=== PATIENT | male | born 1980 | race Caucasian/White ===

== ENCOUNTER 2022-05-07 19:50 | Day surgery (SDC) | payer SELFPAY ==
[~2022-05-07] VITALS: Ht 195.6 cm; Wt 100.0 kg
[~2022-05-07 19:50] MED LIST: AGM875T PO; BACL10TA PO; CLIN300C3 PO; CYCL10TA9 PO; DOCU-161 PO; GABA100C PO; GBPN600T PO; METH4TAB PO; METH500T7 PO; OXYC15TA74 PO; OXYC1TAB12 PO; OXYC1TAB87 PO; OXYC20TA14 PO; PENI500T PO; TRM50T PO
[2022-05-07] MEDS ORDERED: fentaNYL INJ 100 MCG/2 ML AMP IVP STA ×2 (19:54→20:37)
[2022-05-07] MEDS ORDERED: ceFAZolin INJECTION 1,000 MG in NS (IVPB) 50 ML IV STA ×2 (19:54→21:10)
[2022-05-07] MEDS ORDERED: TETANUS,DIPTH,PERTUSS P/F (BOOSTRIX) 0.5 ML VIAL IM ONE (20:00)
[2022-05-07] MEDS ORDERED: LACTATED RINGERS 1,000 ML IV ONE (20:00)
--- NOTE | 2022-05-07 20:06 | ED Lower Extremity ---
General Stated Complaint: L TIB/FIB INJ Source: patient, EMS History of Present Illness Date Seen by Provider: May 07, 2022 Time Seen by Provider: 19:51 Initial Comments PT ARRIVES VIA EMS FROM HOME C/O LEFT LOWER LEG INJURY OCCURRED JUST PRIOR TO ARRIVAL WAS WORKING ON A CAR AT HOME, HAD FRONT END JACKED UP, AND THE CAR FELL OFF THE JC, AND THE FRONT END OF THE CAR LANDED ON HIS RIGHT LOWER LEG LEG WAS TRAPPED UNDER THE CAR FOR LESS THAN 5 MINUTES HAS OPEN WOUND TO LEFT MID TIBIA AREA, WITH BONY CREPITANCE WITH ANY MOVEMENT OF LEG NO PARESTHESIAS OR MOTOR DEFICITS NO PRIOR INJURIES TO THIS LEG NO OTHER INJURIES FROM THE INCIDENT EMS GAVE 100 MCG FENTANYL PRIOR TO ARRIVAL LAST TETANUS 8 YEARS AGO. LAST MEAL AROUND 1700--BISCUITS AND GRAVY NO CHRONIC MEDICAL PROBLEMS, BUT DOES NOT GO TO ANY DR. PCP NONE Allergies and Home Medications Allergies Coded Allergies: Sulfa (Sulfonamide Antibiotics) (Verified Allergy, Severe, HIVES, 01/20/14) Patient Home Medication List Clindamycin HCl (Cleocin HCl) 300 Mg Capsule, 300 MG PO QID Prescribed by: WILLIAN GEORGE on 08/31/16 1458 Gabapentin (Neurontin) 100 Mg Capsule, 900 PO BID, (Reported) Entered as Reported by: RAJNI CULVER on 11/27/14 1620 Tramadol HCl (Tramadol HCl) 50 Mg Tablet, 50 MG PO Q4H PRN for PAIN Prescribed by: WILLIAN GEORGE on 08/31/16 1458 Past Jxtugcu-Sfepls-Hcralw Hx Immunizations Up To Date Tetanus Booster (TDap): Less than 5yrs Past Medical History Adenoidectomy, Orthopedic, Tonsillectomy Neuropathy Back Injury, Chronic Back Pain, Fractures Family Medical History No Pertinent Family Hx Physical Exam Vital Signs Capillary Refill : Height, Weight, BMI Height: 6'5" Weight: 200lbs. oz. [id number]; BMI Method:Stated Procedures/Interventions Suture Size: 4-0 Progress/Results/Core Measures Results/Orders My Orders Orders - BRADFORD SNOW DO Ed Iv/Invasive Line Start (05/07/22 19:54) Monitor-Rhythm Ecg Trace Only (05/07/22 19:54) Chest 1 View, Ap/Pa Only (05/07/22 19:54) Tibia/Fibula, Left, 2 Views (05/07/22 19:54) Alcohol (05/07/22 19:54) Cbc With Automated Diff (05/07/22 19:54) Comprehensive Metabolic Panel (05/07/22 19:54) Creatine Kinase (05/07/22 19:54) Creatine Kinase Mb (05/07/22 19:54) Drug Screen Stat (Urine) (05/07/22 19:54) Magnesium (05/07/22 19:54) Protime With Inr (05/07/22 19:54) Partial Thromboplastin Time (05/07/22 19:54) Ua Culture If Indicated (05/07/22 19:54) Myoglobin Serum (05/07/22 19:54) Ed Iv/Invasive Line Start (05/07/22 19:54) Lactated Ringers (Lr 1000 Ml Iv Solution (05/07/22 20:00) Fentanyl Inj (Sublimaze Injection) (05/07/22 19:54) Cefazolin Injection (Ancef Injection) (05/07/22 19:54) Dipht,Pertuss(Acell),Tet Adult (Boostrix (05/07/22 20:00) Departure Departure-Patient Inst. Referrals: [facility] (PCP/Family) Primary Care Physician BRADFORD SNOW DO May 07, 2022 20:06
--- NOTE | 2022-05-07 20:39 | Diagnostic Imaging Report ---
INDICATION: Trauma with chest pain. EXAMINATION: Frontal chest at 8:17 p.m. FINDINGS: Heart and mediastinal silhouette are normal in appearance. The lungs are clear. There is no pneumothorax or pleural fluid. There is no overt bony abnormality in the chest. IMPRESSION: Negative chest. Dictated by: Dictated on workstation # [id number]
--- NOTE | 2022-05-07 20:40 | Diagnostic Imaging Report ---
INDICATION: Trauma with left leg pain. EXAMINATION: AP and lateral views of the left tibia and fibula were obtained at 8:20 p.m. FINDINGS: There is an acute slightly oblique fracture of the mid tibial shaft, with slight displacement. The fibula appears intact. IMPRESSION: Acute fracture of the midshaft of the tibia as described above. Dictated by: Dictated on workstation # [id number]
--- NOTE | 2022-05-07 21:03 | Progress Note-Pre Operative ---
Pre-Operative Progress Note H&P Reviewed The H&P was reviewed, patient examined and no changes noted. Date Seen by Provider: May 07, 2022 Time Seen by Provider: 20:48 Date H&P Reviewed: May 07, 2022 Time H&P Reviewed: 21:02 Pre-Operative Diagnosis: grade 1 open left tibia shaft fracture MEGAN FONTENOT MD May 07, 2022 21:03
--- NOTE | 2022-05-07 21:03 | Progress Note-Post Operative ---
Post-Operative Progess Note Surgeon (s)/Operational Trainer (s) Surgeon MEGAN FONTENOT MD Operational Trainer: Harpal Pablo Pre-Operative Diagnosis grade 1 open left tibia shaft fracture Post-Operative Diagnosis grade 1 open left tibia shaft fracture Procedure & Operative Findings Date of Procedure 05/07/22 Procedure Performed/Findings irrigation and debridement of the left leg and IM thi of the left tibia Anesthesia Type GETA Estimated Blood Loss Estimated blood loss (mL): 200ML Specimens/Packing Specimens Removed NONE Packing: none MEGAN FONTENOT MD May 07, 2022 21:03
[2022-05-07] MEDS ORDERED: MIDAZOLAM 2 MG/2 ML (VERSED) VIAL ONE (21:12)
[2022-05-07] MEDS ORDERED: fentaNYL INJ 100 MCG/2 ML AMP ONE ×3 (21:12→23:59)
--- NOTE | 2022-05-07 21:13 | HISTORY AND PHYSICAL ---
DATE OF SERVICE: 05/07/2022 ADMISSION HISTORY AND PHYSICAL REASON FOR ADMISSION: Grade I open left tibial shaft fracture. HISTORY OF PRESENT ILLNESS: The patient is a 42-year-old gentleman who was working under a car when the car slipped off the osman landing on his left lower extremity. He was wearing jeans. He denies paresthesias. He denies prior history of injuries to his leg. REVIEW OF SYSTEMS: No chest pain, no shortness of breath, no dysuria. ALLERGIES: SULFA. MEDICATIONS: Gabapentin and tramadol. PAST MEDICAL HISTORY: Neuropathy, chronic back pain. FAMILY HISTORY: Noncontributory. PAST SURGICAL HISTORY: Adenoidectomy. Right forearm. PHYSICAL EXAMINATION: GENERAL: The patient is well developed, well nourished, in minimal distress. HEENT: Normocephalic, atraumatic. Pupils are equal, round and reactive to light. Oropharynx is clear. NECK: Supple, no lymphadenopathy. LUNGS: Clear to auscultation bilaterally. HEART: Regular rate and rhythm. ABDOMEN: Soft, nontender, nondistended. EXTREMITIES: The left lower extremity demonstrates intact sensation distally. He has no pain with passive range of motion of the toes. He has intact dorsiflexion and plantarflexion of the toes. Pulses are symmetric with brisk capillary refill. There is 1 cm wound on the anteromedial aspect of his left tibia with bleeding noted. RADIOGRAPHS: Reveal a transverse fracture, midshaft left tibia. IMPRESSION: Midshaft left tibia fracture with grade I open wound. PLAN: Irrigation and debridement of left tibia wound with intramedullary nail. The risks, benefits, options, ramifications and recovery have been discussed at length with the patient and his . They understand and wished to proceed. Job ID: [id number] DocumentID: [id number] Dictated Date: 05/07/2022 21:02:06 Automatic Silk Screen Printer Date: 05/07/2022 21:12:24 Dictated By: MEGAN FONTENOT MD
[2022-05-07] MEDS ORDERED: NALOXONE 0.4 MG/ML 1 ML (NARCAN) VIAL IV PRN (21:30)
[2022-05-07] MEDS ORDERED: ONDANSETRON 4 MG/2 ML (SDV) Z0FRAN IVP PRN (21:30)
[2022-05-07] MEDS ORDERED: LACTATED RINGERS 1,000 ML IV PRN (21:30)
[2022-05-07] MEDS ORDERED: ceFAZolin INJECTION 1,000 MG ONE (21:43)
[2022-05-07] MEDS ORDERED: BUPIVACAINE 0.5% 30 ML (SENSORCAINE) VIAL ONE (21:44)
[2022-05-07] MEDS ORDERED: LIDOCAINE PF 2% 5 ML (XYLOCAINE) VIAL ONE (23:29)
[2022-05-07] MEDS ORDERED: ONDANSETRON 4 MG/2 ML (SDV) Z0FRAN ONE (23:29)
[2022-05-07] MEDS ORDERED: proPOfol 200 MG/20 ML (DIPRIVAN) VIAL IV ONE (23:29)
[2022-05-07] MEDS ORDERED: SUCCINYLCHOLINE INJ 20 MG/1 ML 10 ML VIAL ONE (23:30)
[2022-05-07] MEDS ORDERED: SEVOFLURANE (ULTANE) 15 ML INHAL SOLN ONE (23:32)
[2022-05-07 23:43] VITALS: BP 116/87
[2022-05-07 23:50] VITALS: BP 127/88
[2022-05-08] VITALS (12 sets, daily range): BP systolic 112–142; BP diastolic 64–90
[2022-05-08] MEDS ORDERED: MEPERIDINE (DEMEROL) INJ 50 MG/ML ONE (00:12)
[2022-05-08] MEDS ORDERED: ONDANSETRON 4 MG/2 ML (SDV) Z0FRAN IVP PRN (00:15)
[2022-05-08] MEDS: fentaNYL INJ 100 MCG/2 ML AMP IVP PRN ×6 (00:15→14:20)
[2022-05-08] MEDS ORDERED: fentaNYL INJ 100 MCG/2 ML AMP IVP ONE (00:15)
[2022-05-08] MEDS ORDERED: MEPERIDINE (DEMEROL) INJ 50 MG/ML IVP ONE (00:15)
[2022-05-08] MEDS ORDERED: morphine INJ 10 MG/ML 1ML (SYR OR VIAL) IVP ONE (00:15)
--- NOTE | 2022-05-08 03:46 | OPERATIVE REPORT ---
DATE OF SERVICE: PREOPERATIVE DIAGNOSIS: Grade I left open tibia shaft fracture. POSTOPERATIVE DIAGNOSIS: Grade I left open tibia shaft fracture. PROCEDURES: 1. Irrigation and debridement of the left leg and tibia. 2. Intramedullary thi of the left tibia. SURGEON: Vincent Fontenot MD PREFORM PLATE MAKER: Harpal Pablo, who assisted throughout the procedure and closed the incisions. ANESTHESIA: General endotracheal by Susannah Nolan CRNA. TOURNIQUET TIME: Not applicable. ESTIMATED BLOOD LOSS: Minimal. DRAINS: None. COMPLICATIONS: None. POSTOPERATIVE PLAN: A 50% weightbearing left lower extremity with his 48 hours of IV antibiotics. The patient was transferred to the recovery room awake and stable condition. STATEMENT OF MEDICAL NECESSITY: The patient is a 42-year-old gentleman, who presented to the Emergency Department following an injury in which a car fell off of a osman onto his left lower extremity. He had a 1 cm wound with underlying transverse tibial shaft fracture. The patient was given Ancef in the emergency room on arrival. The wound was clean. He had been wearing jeans. He was taken emergently to the operating room. DESCRIPTION OF PROCEDURE: After risks and benefits of procedure were discussed and questions were answered, informed consent was signed and placed on chart, the operative site was confirmed in the preoperative holding area initialed by the surgeon. The patient was then transferred to the operating room and after adequate levels of general endotracheal anesthetic were obtained, timeout was called, confirming the operative site. Left lower extremity was prepped and draped in the usual sterile fashion. The laceration site was opened proximally and distally approximately 2 cm. The bone was exposed and irrigated with 9 liters of pulse lavage. This was then reapproximated with a 3-0 Vicryl in simple interrupted fashion. An incision was then made in medial parapatellar region. The underlying soft tissues were carefully dissected. A medial parapatellar incision was made. The starting awl was placed at the tibial flare. The guidewire was passed past the fracture site to the physeal scar. This was ensured to be in excellent position radiographically. The canal was then sequentially reamed up to a size 12.5 and a 375 mm in length, thi 11 mm in diameter was placed. This was the Synthes nail. AP and lateral fluoroscopy revealed well reduced fracture with well-placed hardware through the proximal guide, the proximal locking screw was placed with good purchase. Fluoroscopy in the AP and lateral planes revealed a well-placed hardware. Using the freehand technique and through percutaneous incision, a distal static locking screw was placed with excellent purchase. Fluoroscopy in AP and lateral planes revealed well-placed hardware, well reduced fracture. The wounds were copiously irrigated. The arthrotomy was closed with #1 Vicryl in [id number] interrupted fashion, A 0 Vicryl was used for deep subcutaneous layer, 2-0 Vicryl was used for the superficial subcutaneous layer and rita used at the surgical incisions. The incisions were infiltrated with plain Marcaine. A soft dressing was applied. The patient was transferred to the recovery room awake and in stable condition. Job ID: [id number] DocumentID: [id number] Dictated Date: 05/07/2022 23:43:56 Retail Project Merchandiser Date: 05/08/2022 01:52:49 Dictated By: VINCENT FONTENOT MD
--- NOTE | 2022-05-08 07:39 | Progress Note ---
Standard Progress Note Progress Notes/Assess & Plan Date Seen by a Provider: May 08, 2022 Time Seen by a Provider: 07:37 Progress/Assessment & Plan no complaints denies paresthesias Vital Signs Date Time Temp Pulse Resp B/P (MAP) Pulse Ox O2 Delivery O2 Flow Rate FiO2 05/08/22 04:43 36.4 78 18 121/64 (83) 96 Room Air 05/08/22 01:53 36.4 05/08/22 01:00 36.4 74 19 130/72 (91) 97 Room Air 05/08/22 00:45 Room Air 05/08/22 00:45 Room Air 05/08/22 00:40 37.3 16 129/81 (97) 96 Room Air 05/08/22 00:30 OxyMask 5 05/08/22 00:30 12 130/85 (100) 97 OxyMask 3 05/08/22 00:20 12 132/85 (101) 97 OxyMask 5 05/08/22 00:15 OxyMask 8 05/08/22 00:10 16 142/88 (106) 99 OxyMask 5 05/08/22 00:01 20 130/90 (103) 100 OxyMask 8 05/08/22 00:01 OxyMask 8 05/07/22 23:50 16 127/88 (101) 98 OxyMask 8 05/07/22 23:43 OxyMask 8 05/07/22 23:43 37.0 16 116/87 (97) 99 OxyMask 8 I & O 05/08/22 07:00 Intake Total 1340 ml Balance 1340 ml LLOE--compartments soft intact DF and PF of toes and ankle no sig pain with PROM of toes and ankle 2 plus DP pulse with brisk cap refill intact sensation to light touch throughout s/p IM thi L tibia with I and D foot pump to LLE OOB 48 hour MEGAN Mora MD May 08, 2022 07:39
[2022-05-08] MEDS: ENOXAPARIN INJECTION 30 MG/0.3 ML SYR SC SCH ×2 (07:48→20:21)
--- NOTE | 2022-05-08 10:37 | Diagnostic Imaging Report ---
Indication: ORIF. IMPRESSION: 30 seconds of fluoroscopy was utilized during intramedullary nail fixation of the patient's prior tibial shaft fracture. Dictated by: Dictated on workstation # [id number]
--- NOTE | 2022-05-08 10:39 | Progress Note ---
Standard Progress Note Progress Notes/Assess & Plan Date Seen by a Provider: May 08, 2022 Time Seen by a Provider: 10:38 Progress/Assessment & Plan no complaints denies paresthesias Vital Signs Date Time Temp Pulse Resp B/P (MAP) Pulse Ox O2 Delivery O2 Flow Rate FiO2 05/08/22 04:43 36.4 78 18 121/64 (83) 96 Room Air 05/08/22 01:53 36.4 05/08/22 01:00 36.4 74 19 130/72 (91) 97 Room Air 05/08/22 00:45 Room Air 05/08/22 00:45 Room Air 05/08/22 00:40 37.3 16 129/81 (97) 96 Room Air 05/08/22 00:30 OxyMask 5 05/08/22 00:30 12 130/85 (100) 97 OxyMask 3 05/08/22 00:20 12 132/85 (101) 97 OxyMask 5 05/08/22 00:15 OxyMask 8 05/08/22 00:10 16 142/88 (106) 99 OxyMask 5 05/08/22 00:01 20 130/90 (103) 100 OxyMask 8 05/08/22 00:01 OxyMask 8 05/07/22 23:50 16 127/88 (101) 98 OxyMask 8 05/07/22 23:43 OxyMask 8 05/07/22 23:43 37.0 16 116/87 (97) 99 OxyMask 8 I & O 05/08/22 07:00 Intake Total 1340 ml Balance 1340 ml LLOE--compartments soft intact DF and PF of toes and ankle no sig pain with PROM of toes and ankle 2 plus DP pulse with brisk cap refill intact sensation to light touch throughout s/p IM thi L tibia with I and D foot pump to LLE OOB 48 hour Ancef Final Diagnosis no complaints denies paresthesias LLE no pain with PROM of toes and ankle intact sensation throughout pulses equal no s/sxs compartment syndrome MEGAN FONTENOT MD May 08, 2022 10:39
--- NOTE | 2022-05-08 11:12 | Anesthesia-General Post-Op ---
General Patient Condition Mental Status/LOC: Same as Preop Cardiovascular: Satisfactory Nausea/Vomiting: Absent Respiratory: Satisfactory Pain: Controlled Complications: Absent Post Op Complications Complications None Follow Up Care/Instructions Patient Instructions None needed. Anesthesia/Patient Condition Patient Condition Patient is doing well, no complaints, stable vital signs, no apparent adverse anesthesia problems. No complications reported per nursing. MAILE WILL CRNA May 08, 2022 11:11
[2022-05-08] MEDS: oxyCODONE/APAP 5/325MG (PERCOCET 5) TABLET PO PRN ×4 (11:20→23:23)
[2022-05-08] MEDS: ceFAZolin 2 GM IV Premixed 50 ML IV SCH ×3 (15:45→23:23)
[2022-05-09] MEDS: fentaNYL INJ 100 MCG/2 ML AMP IVP PRN ×3 (00:40→13:49)
[2022-05-09 04:00] VITALS: BP 141/89
[2022-05-09] MEDS: oxyCODONE/APAP 5/325MG (PERCOCET 5) TABLET PO PRN ×4 (04:00→16:11)
[2022-05-09] MEDS ORDERED: CEPH500T PO (07:58)
[2022-05-09] MEDS ORDERED: OXYC1TAB87 PO (07:58)
--- NOTE | 2022-05-09 08:03 | Progress Note ---
Standard Progress Note Progress Notes/Assess & Plan Date Seen by a Provider: May 09, 2022 Time Seen by a Provider: 08:00 Progress/Assessment & Plan no complaints denies paresthesias Vital Signs Date Time Temp Pulse Resp B/P (MAP) Pulse Ox O2 Delivery O2 Flow Rate FiO2 05/08/22 04:43 36.4 78 18 121/64 (83) 96 Room Air 05/08/22 01:53 36.4 05/08/22 01:00 36.4 74 19 130/72 (91) 97 Room Air 05/08/22 00:45 Room Air 05/08/22 00:45 Room Air 05/08/22 00:40 37.3 16 129/81 (97) 96 Room Air 05/08/22 00:30 OxyMask 5 05/08/22 00:30 12 130/85 (100) 97 OxyMask 3 05/08/22 00:20 12 132/85 (101) 97 OxyMask 5 05/08/22 00:15 OxyMask 8 05/08/22 00:10 16 142/88 (106) 99 OxyMask 5 05/08/22 00:01 20 130/90 (103) 100 OxyMask 8 05/08/22 00:01 OxyMask 8 05/07/22 23:50 16 127/88 (101) 98 OxyMask 8 05/07/22 23:43 OxyMask 8 05/07/22 23:43 37.0 16 116/87 (97) 99 OxyMask 8 I & O 05/08/22 07:00 Intake Total 1340 ml Balance 1340 ml LLOE--compartments soft intact DF and PF of toes and ankle no sig pain with PROM of toes and ankle 2 plus DP pulse with brisk cap refill intact sensation to light touch throughout s/p IM thi L tibia with I and D foot pump to LLE OOB 48 hour Ancef Final Diagnosis no complaints Vital Signs Date Time Temp Pulse Resp B/P (MAP) Pulse Ox O2 Delivery O2 Flow Rate FiO2 05/09/22 04:00 36.9 68 20 141/89 (106) 98 Room Air 05/08/22 23:28 36.8 72 18 138/87 (104) 98 Room Air 05/08/22 20:00 Room Air 05/08/22 20:00 36.9 81 20 134/76 (95) 98 Room Air 05/08/22 16:00 37.0 77 18 121/66 (84) 96 Room Air 05/08/22 11:23 37.5 76 18 120/75 (90) 97 Room Air I & O 05/09/22 06:59 Intake Total 2210 ml Output Total 2200 ml Balance 10 ml LLE--incisions clean and dry no calf tenderness. neg Preethi's no pain with PROM of toes and ankle sensation intact throughout pulses equal s/p L tibia IM thi DC after 48 hours of MEGAN Mora MD May 09, 2022 08:03
[2022-05-09 08:06] VITALS: BP 135/83
[2022-05-09] MEDS: ceFAZolin 2 GM IV Premixed 50 ML IV SCH ×2 (08:21→16:11)
[2022-05-09] MEDS: ENOXAPARIN INJECTION 30 MG/0.3 ML SYR SC SCH (08:21)
--- NOTE | 2022-05-09 11:27 | Physical Therapy Evaluation ---
PT Evaluation-General Medical Diagnosis Admission Date May 08, 2022 at 00:30 Medical Diagnosis: left tibial fracture Onset Date: May 08, 2022 Therapy Diagnosis Therapy Diagnosis: impaired mobility Height/Weight Height (Feet): 6 Height (Inches): 5 Weight (Pounds): 200 Precautions Precautions/Isolations: Fall Prevention, Standard Precautions Weight Bear Status Right Lower Extremity: Right Full Weight Bearing Left Lower Extremity: Left Touch Toe Bearing Referral Physician: Bossman Reason for Referral: Evaluation/Treatment Medical History Current History EMS secondary to car slipped of the osman and landed on patient's left LE. Reviewed History: Yes Social History Home: Single Level Current Living Status: Significant Other Entry Into Home: Stairs With Railing PT Steps Into Home: 4 Prior Prior Level of Function SCALE: Activities may be completed with or without assistive devices. 1-Podfzwiguz-vcgqeoy completes the activity by him/herself with no assistance from a helper. 5-Set-up or Clean-up Assistance-helper sets up or cleans up; patient completes activity. [place] assists only prior to or following the activity. 4-Supervision or Touching Assistance-helper provides verbal cues and/or touching/steadying and/or contact guard assistance as patient completes activity. Assistance may be provided throughout the activity or intermittently. 3-Partial/Moderate Assistance-helper does LESS THAN HALF the effort. [place] lifts, holds or supports trunk or limbs, but provides less than half the effort. 2-Substantial/Maximal Assistance-helper does MORE THAN HALF the effort. [place] lifts or holds trunk or limbs and provides more than half the effort. 5-Iysndolka-ebljxo does ALL the effort. Patient does none of the effort to complete the activity. Or, the assistance of 2 or more helpers is required for the patient to complete the activity. If activity was not attempted, code reason: 7-Patient Refused. 9-Not Applicable-not attempted and the patient did not perform the activity before the current illness, exacerbation or injury. 10-Not Attempted due to Environmental Limitations-(lack of equipment, weather restraints, etc.). 88-Not Attempted due to Medical Conditions or Safety Concerns. Bed Mobility: 6 Transfers (B,C,W/C): 6 Gait: 6 Stairs: 6 Indoor Mobility (Ambulation): Independent Stairs: Independent Prior Devices Use: None PT Evaluation-Current Subjective Patient agrees to PT. Pain Numeric Pain Scale: 8 Location: Left Location Body Site: Calf Pain Description: Acute Objective Patient Orientation: Normal For Age ROM/Strength ROM Lower Extremities right LE WFL/left LE slightly limited due to patient and swelling Strength Lower Extremities right LE 5/5 grossly/left LE 4/5 grossly (no formal testing) Integumentary/Posture Integumentary refer to nursing notes Bowel Incontinence: No Bladder Incontinence: No Posture WFL Neuromuscular (Tone, Coordination, Reflexes) grossly intact Sensory Vision: Functional Hearing: Functional Transfers Sit to Lying (QC): 6 Lying to Sitting/Side of Bed(Q: 6 Sit to Stand (QC): 4 Gait Does the Patient Walk?: Yes Mode of Locomotion: Walk Anticipated Mode of Locomotion: Walk Walk 10 feet (QC): 4 Walk 50 ft with 2 Turns(QC): 4 Walk 150 ft (QC): 4 Distance: 150' x 2 Gait Assistive Device: FWW Comments/Gait Description TTWB left LE with foot flat Stairs #of Steps: 4 1 Step (curb) (QC): 4 4 Steps (QC): 4 Walking Assistive Device: Walker (and right hand rail) Balance Sitting Static: Normal Sitting Dynamic: Normal Standing Static: Good Standing Dynamic: Good Assessment/Needs Patient will be seen x 2 sessions for gait and stair training to ensure safer return to home with significant other to assist PRN. Patient is able to comply with TTWB left LE without difficulty. Rehab Potential: Good PT Short Term Goals Short Term Goals Time Frame: May 09, 2022 Roll Left & Right: 6 Sit to lyin Lying to sitting on side of be: 6 Sit to stand: 6 Walk 10 feet: 4 Walk 50 feet with two turns: 4 Walk 150 feet: 4 1 step (curb): 4 4 steps: 4 PT Plan Problem List Problem List: Activity Tolerance Treatment/Plan Treatment Plan: Continue Plan of Care Treatment Plan: Education, Functional Activity Krupa, Functional Strength, Gait, Safety, Therapeutic Exercise, Transfers Treatment Duration: May 09, 2022 Frequency: 2 times per week Estimated Hrs Per Day: .5 hour per day Patient and/or Family Agrees t: Yes Time/GCodes Time In: 936 Time Out: 1007 Total Billed Treatment Time: 31 Total Billed Treatment 1 visit EVModC 16 min FA 15 min YONIS LEAL PT May 09, 2022 11:27
[2022-05-09 12:45] VITALS: BP 134/81
--- NOTE | 2022-05-09 14:48 | Physical Therapy Progress Note ---
Therapy Progress Note Patient observed up independent in room with FWW, TTWB left LE. Patient declined PT due to 10/10 left LE pain. RN notified of patient's request for pain medication. Patient review with stair training verbally with patient voicing understanding and performing them this a.m. Patient to dismiss to home this p.m. per report. 1 visit YONIS LEAL PT May 09, 2022 14:48
[2022-05-09 16:30] VITALS: BP 134/77
[2022-05-09 18:50] VITALS: BP 134/77
--- NOTE | 2022-05-10 00:27 | DISCHARGE SUMMARY ---
DATE OF SERVICE: DIAGNOSIS: Grade I open left tibia fracture. PROCEDURE: Irrigation and debridement of the left tibia with intramedullary nail. HISTORY: The patient is a 42-year-old gentleman who while working under a car, the osman slipped and crushed his left lower extremity. He had approximately 1 cm laceration over a transverse tibia fracture. He was taken urgently to the operating room where he underwent irrigation and debridement with intramedullary nail without complications. Postoperatively, he received 48 hours of IV Ancef. His wound was clean and dry. He had no calf tenderness. Negative Homans sign. He had intact dorsiflexion and plantarflexion of the toes. Sensation was intact distally with symmetric pulses and brisk capillary refill. He had no pain with passive range of motion. CONDITION AT DISCHARGE: Good. DISCHARGE DIET: Regular. FOLLOWUP: Followup is in two weeks. DISCHARGE MEDICATIONS: Percocet and Keflex for 7 days. ACTIVITIES: Toe touch weightbearing, left lower extremity. Job ID: [id number] DocumentID: [id number] Dictated Date: 05/09/2022 08:01:55 Truer Pinion And Wheel Date: 05/10/2022 00:26:35 Dictated By: MEGAN FONTENOT MD
== END 2022-05-09 18:55 | disposition home or self-care (01) ==
LOC: EDUNIT# 19:50 → ER 19:52 → 4TH 21:41 → SDC 21:41 → 4TH 05-08 00:30 → UNDOADMOB 05-08 00:30 → UNDODISOB 05-09 18:55 → SDC 05-09 18:55
PROVIDERS: ATTEND Orthopaedic Surgery
DX: S82.202B Unspecified fracture of shaft of left tibia, initial encounter for open fracture type I or II (principal)
CPT/HCPCS: 11012; 27759; 71045; 73590; 76000; 82565; 93041; 96372 ×2; 96376 ×2; 97162; 97530; 99285; C1713 ×5; 36415; 90471; 90715; 96374; 96375